=== PATIENT | male | born 1955 | race Caucasian/White ===

== ENCOUNTER 2018-04-02 08:07 | Day surgery (SDC) | payer BC ==
[~2018-04-02 08:07] MED LIST: LACTATED RINGERS 1,000 ML IV SCH; LIDOCAINE 1% 20 ML VIAL (10MG/ML) FOR IV START INTRADERMA PRN
[2018-04-02 08:36] VITALS: TEMP 98
[2018-04-02] MEDS ORDERED: PROPOFOL 10 MG/ML 20 ML VIAL IV ONE (09:23)
[2018-04-02] MEDS ORDERED: LIDOCAINE 1% INJ 10MG/ML (20 ML MDV) ONE (09:23)
--- NOTE | 2018-04-02 09:58 | P.PCN ---
Date of Procedure: 04/02/18 Procedure(s) Performed: Procedure: Total colonoscopy. Preoperative diagnosis: Screening for neoplasia, patient has history of polyps. Postoperative diagnosis: Sigmoid diverticulosis with no evidence of acute diverticulitis, strictures, polyps or cancer. Preparation: HalfLytely prep. Sedation: Was provided by anesthesia. Brief clinical history: The patient is a 62-year-old male who is scheduled for this evaluation for screening for neoplasia. He had two prior exams 5 francine 10 years ago and he had polyps removed on his first exam. At this time, he has no abdominal complaints, bleeding or anemia. Procedure: With the patient on his left lateral decubitus position and after informed consent and adequate sedation, the perianal area was inspected and it did not show any fissures or fistulas. There were no masses felt on digital rectal examination. The Olympus CFQ 160L video colonoscope was then inserted in the rectum and the usual fashion and advanced to the cecum. There were several diverticular orifices seen scattered in the sigmoid but there was no evidence of acute diverticulitis or strictures. No polyps or tumors were seen or any obvious other pathology. I retroflexed the endoscope in the rectum before the endoscope was withdrawn. The patient tolerated the procedure well. Plan: The patient was reassured. Discussed dietary measures. He will follow up with you as planned and I recommended repeat exam in 5 years.
[2018-04-02 10:07] VITALS: BP 122/82; PULSE 63; RESP 18
== END 2018-04-02 10:27 | disposition home or self-care (01) ==
LOC: ORWHC2ENDO 08:07
DX: Z12.11 Encounter for screening for malignant neoplasm of colon (principal); K57.30 Diverticulosis of large intestine without perforation or abscess without bleeding; Z86.010 Personal history of colon polyps; E11.9 Type 2 diabetes mellitus without complications; I10 Essential (primary) hypertension; Z87.442 Personal history of urinary calculi; Z79.899 Other long term (current) drug therapy
CPT/HCPCS: J2001; J2704; G0105

== ENCOUNTER → 2019-03-01 | Outpatient (CLI) | payer BC ==
--- NOTE | 2019-03-01 10:03 | XR ---
EXAMINATION TYPE: XR cervical spine comp DATE OF EXAM: 03/01/2019 COMPARISON: NONE HISTORY: Pain TECHNIQUE: Four views are submitted. FINDINGS: The odontoid is intact. There are no compression deformities. The prevertebral soft tissue structur es are within normal limits. Calcifications in the soft tissues of the left neck are noted. There is an anterolisthesis of C3 on C4 and C4 on C5 measuring approximately 3.2 mm. Severe degenerative disc disease C5-6 with moderate changes C6-C7. Multilevel facet arthropathy. Foraminal encroachment C5-6 and C6-C7. Suspect foraminal encroachment at C4-C5. IMPRESSION: 1. Multilevel degenerative disc disease with multilevel anterolisthesis. Multilevel foraminal encroac hment suspected recommend follow-up MRI.
== END | disposition home or self-care (01) ==
LOC: RADXRYALE 09:08
PROVIDERS: ATTEND Physician Assistant Medical
DX: M50.322 Other cervical disc degeneration at C5-C6 level (principal); M43.12 Spondylolisthesis, cervical region
CPT/HCPCS: 72050

== ENCOUNTER → 2019-09-06 | Outpatient (CLI) | payer BC ==
--- NOTE | 2019-09-06 13:47 | MR ---
EXAMINATION TYPE: MR cervical spine wo con DATE OF EXAM: 09/06/2019 COMPARISON: Plain film 03/01/2019 HISTORY: Cervicalgia, neck pain TECHNIQUE: Multiplanar, multisequence images of the cervical spine were acquired. C2-C3: No evidence for degenerative disc disease. No disc bulge/herniation or protrusion. No Canal stenosis. Foramina are patent bilaterally. C3-C4: Uncovertebral joint hypertrophy and facet arthropathy results in foraminal encroachment on the right. Posterior disc bulge causes only slight anterior mass effect on the thecal sac, no significan t spinal stenosis. C4-C5: Left-sided foraminal encroachment is present due to uncovertebral joint hypertrophy and facet arthropathy. No significant spinal stenosis or sizable disc herniation. C5-C6: Posterior extension of endplate disc complex results in moderate to severe central stenosis. B ilateral foraminal encroachment is present. C6-C7: Posterior extension of broad-based disc bulge causes moderate to severe central stenosis. Unco vertebral joint hypertrophy facet arthropathy results in bilateral foraminal encroachment. C7-T1: No evidence for degenerative disc disease. No disc bulge/herniation or protrusion. No Canal stenosis. Foramina are patent bilaterally. Cervical segments are intact. There is normal alignment. Cervical spinal cord is of normal signal. Craniovertebral junction relationships are within normal limits. There is multilevel spondylosis. L oss of disc height signal is greatest at C5-6 and C6-7, is endplate discogenic marrow signal change. IMPRESSION: Degenerative disc disease, multilevel spinal stenosis and foraminal encroachment.
== END ==
LOC: RADMRIMAIN 08:45
PROVIDERS: ATTEND Physician Assistant Medical
DX: M48.02 Spinal stenosis, cervical region (principal); M50.30 Other cervical disc degeneration, unspecified cervical region
CPT/HCPCS: 72141

== ENCOUNTER → 2020-05-31 | Outpatient (CLI) | payer BC ==
--- NOTE | 2020-06-01 05:21 | CT ---
EXAMINATION TYPE: CT pelvis wo con DATE OF EXAM: 05/31/2020 COMPARISON: 06/22/2013 HISTORY: 64-year-old male Left groin pain. History of bilateral inguinal hernia repairs. TECHNIQUE: Contiguous axial scanning of the pelvis without IV contrast. Coronal and sagittal reconstr uctions performed. CT DLP: 497.9 mGycm Automated exposure control for dose reduction was used. FINDINGS: Within the visualized lower abdomen and pelvis, no dilated small bowel, free fluid, or free air. An indeterminate 1.4 cm cortical lesion from the lateral mid to lower pole right kidney, unchanged yang ggesting cysts. 4 mm nonobstructive right renal calculus. Normal appendix. Moderate stool in the sigmoid colon with mild to moderate diverticular change in the proximal to mid sigmoid. No perisplenic inflammatory change. Mild atherosclerotic calcifications abdominal aorta and iliac arteries. Bladder is urine distended. Prostate gland measures 4.7 cm wide. The previous inguinal hernias are no longer identified. No abnormal fluid collection the pelvis or pe lvic lymphadenopathy. Bones: Osteitis pubis. Moderate degenerative change at the hips. Mild degenerative changes SI joints. IMPRESSION: 1. INTERVAL BILATERAL INGUINAL HERNIA REPAIRS COMPARED TO 2013. NO RECURRENT HERNIA IDENTIFIED. NO ABNORMAL FLUID COLLECTION OR OTHER SPECIFIC ABNORMALITY IDENTIFIED. 2. A 4 MM NONOBSTRUCTIVE RIGHT RENAL CALCULUS. SIGMOID DIVERTICULOSIS. 3. MILD PROSTATOMEGALY AT 4.7 CM WIDE, SLIGHTLY INCREASED FROM 4.4 CM BACK IN 2013.
== END | disposition home or self-care (01) ==
LOC: RADCTMAIN 17:48
PROVIDERS: ATTEND Family Medicine
DX: K40.20 Bilateral inguinal hernia, without obstruction or gangrene, not specified as recurrent (principal); N20.0 Calculus of kidney; K57.30 Diverticulosis of large intestine without perforation or abscess without bleeding; N40.0 Benign prostatic hyperplasia without lower urinary tract symptoms
CPT/HCPCS: 72192; Q9967

== ENCOUNTER → 2022-10-08 | Outpatient (CLI) | payer BC ==
--- NOTE | 2022-10-08 09:46 | XR ---
EXAMINATION TYPE: XR foot complete LT DATE OF EXAM: 10/08/2022 COMPARISON: NONE HISTORY: Pain TECHNIQUE: Three views are submitted. FINDINGS: The osseous structures are intact. There is no acute fracture or dislocation. Small calcaneal spur is noted. There is moderate arthropathy of the first MTP. IMPRESSION: 1. Small calcaneal spurs. 2. Moderate arthropathy first MTP.
== END | disposition home or self-care (01) ==
LOC: RADXRYALE 09:04
PROVIDERS: ATTEND Physician Assistant Medical
DX: M77.32 Calcaneal spur, left foot (principal); M76.62 Achilles tendinitis, left leg

== ENCOUNTER → 2023-10-06 | Outpatient (CLI) | payer BC ==
--- NOTE | 2023-10-06 09:22 | XR ---
EXAMINATION TYPE: XR cervical spine comp DATE OF EXAM: 10/06/2023 CLINICAL HISTORY: pain COMPARISON: NONE TECHNIQUE: Frontal, lateral, oblique, swimmers, and open mouth view of the cervical spine are obtaine d. FINDINGS: The cervical spine is visualized in its entirety from C1 thru the top of T1 level. It is s atisfactory in alignment without evidence of acute fracture or dislocation. The pre-vertebral soft t issue appears within normal limits. Moderate multilevel degenerative disc disease and spondylosis. Th e C1-C2 articulation is unremarkable on the open mouth view. The oblique images are within normal li mits. IMPRESSION: No acute fracture or dislocation is seen in the cervical spine.ICD 10 NO FRACTURE, INITI AL EVALUATION
== END | disposition home or self-care (01) ==
LOC: RADXRYALE 08:59
PROVIDERS: ATTEND Physician Assistant Medical
DX: M50.10 Cervical disc disorder with radiculopathy, unspecified cervical region (principal)
CPT/HCPCS: 72050

== ENCOUNTER 2024-08-06 10:53 | Inpatient (IN) | payer BC ==
[2024-08-06] MEDS: SODIUM CHLORIDE 0.9% 500 ML 500 ML IV ONE (11:55)
[2024-08-06] MEDS: MIDAZOLAM 2 MG/2 ML VIAL IVP ONE ×2 (13:12→13:19)
[2024-08-06] MEDS: LIDOCAINE 1% INJ 10MG/ML (20 ML MDV) SQ ONE (13:13)
[2024-08-06] MEDS: VERAPAMIL SYRINGE (5 MG/10 ML) INTRAARTER ONE (13:16)
[2024-08-06] MEDS: FLUMAZENIL 0.1 MG/ML 5 ML VIAL IVP ONE (13:22)
[2024-08-06] MEDS: HEPARIN SODIUM 1,000 UN/ML (10ML VL) IVP ONE ×2 (13:28→13:44)
[2024-08-06] MEDS: TICAGRELOR 90 MG TAB PO ONE (13:29)
[2024-08-06] MEDS: HEPARIN SODIUM,PORCINE 10,000 UNIT in SODIUM CHLORIDE 0.9% 1,000 ML IRRIGATION ONE (13:39)
[2024-08-06] MEDS: HEPARIN SODIUM,PORCINE (1 ML) 2,500 UNIT in SODIUM CHLORIDE 0.9% 250 ML IRRIGATION ONE (13:40)
[2024-08-06] MEDS: IOPAMIDOL-370 200ML BTL INJ ONE (14:12)
[2024-08-06] MEDS ORDERED: ZOLPIDEM 5 MG TAB PO PRN (14:21)
[2024-08-06] MEDS ORDERED: RX INFO: IV CONTRAST WAS GIVEN 1 EACH MISC MISCELLANE PRN (14:21)
[2024-08-06] MEDS ORDERED: MAG HYDROX/AL HYDROX/SIMETH 30 ML CUP PO PRN (14:21)
[2024-08-06] MEDS ORDERED: NITROGLYCERIN SL TABS 0.4 MG TAB SUBLINGUAL PRN (14:21)
[2024-08-06] MEDS ORDERED: ATROPINE SULFATE 0.1 MG/ML 10ML SYRINGE IV PRN (14:21)
[2024-08-06] MEDS: SODIUM CHLORIDE 0.9% 1,000 ML in EMPTY BAG 1 BAG IV SCH (14:44)
[2024-08-06 16:21] LABS: Glucose,Whole Blood 137 mg/dL (70-110)
[2024-08-06] MEDS: ALPRAZolam 0.25 MG TAB PO PRN (16:48)
--- NOTE | 2024-08-06 17:55 | P.HPIM ---
History of Present Illness H&P Date: 08/06/24 Patient is a 68-year-old male with PMH of JENNIFER (not on CPAP), hypertension initially presented to [facility] on 08/05/2024 with complaint of chest pain. Patient underwent extensive laboratory evaluation including chest x-ray and EKG. His high sensitive troponin level trended upward. Patient was diagnosed with NSTEMI. Patient was transferred to [facility] today. He underwent angioplasty with RCA stenting. Currently, patient is recovering well. Patient not complaining of chest pain, shortness of breath, acute vision changes. Patient received Xanax for anxiety. He otherwise has no other concerns or complaints. Review of systems: Pertinent positives and negatives as discussed in HPI, a complete review of systems was performed and all other systems are negative. Physical examination: Vital signs reviewed General: non toxic, no distress, appears at stated age, normal weight Derm: no unusual rashes/lesions, warm Head: atraumatic, normocephalic, symmetric Eyes: EOMI, no lid lag, anicteric sclera, pupils equal round reactive to light ENT: Nose and ears atraumatic Neck: No cervical lymphadenopathy, trachea midline, supple Mouth: no lip lesion, mucus membranes moist Cardiovascular: S1S2 reg, no murmur, positive dorsalis pedis pulse bilateral, no edema Lungs: CTA bilateral, no rhonchi, no rales, no accessory muscle use Abdominal: soft, nontender to palpation, no guarding Ext: muscle strength 5 out of 5 in all 4 extremities grossly, no gross muscle atrophy, no contractures, Neuro: CN II-XI grossly intact, no gross focal neuro deficits Psych: Alert, oriented, appropriate affect Assessment/Plan: 68-year-old male with past medical history of JENNIFER and hypertension is currently admitted for medical management status post cardiac cath with RCA stent. #NSTEMI status post RCA stent Continue aspirin 81 mg p.o. daily Atorvastatin 80 mg p.o. daily Nitrostat 0.4 mg tablets sublingual Brilinta 90 mg p.o. twice daily Continue with cardiac monitoring Order lipid panel, TSH Heart healthy diet Monitor CBC and BMP #Anxiety #Insomnia Xanax 0.25 mg p.o. twice daily as needed Ambien 5 mg p.o. at bedtime as needed #Hypertension Losartan 100 mg p.o. daily Hydrochlorothiazide 25 mg p.o. daily DVT prophylaxis: not indicated The patient is admitted with an anticipated less than 2 midnight stay for evaluation of NSTEMI status post stent CODE STATUS: Full code Discussed with: Patient Anticipated discharge place: Pending clinical course I saw and evaluated the patient during the ellis and critical portions of this encounter, and discussed the case in detail with the resident author of this note, I agree with the Assessment and Plan, and my changes, if any, are highlighted in blue. Past Medical History Past Medical History: Hypertension, Myocardial Infarction ([place]) Additional Past Medical History / Comment(s): hemorrhoids, hx of kidney stones., Last Myocardial Infarction Date:: 08/06/2024 History of Any Multi-Drug Resistant Organisms: None Reported Past Surgical History: Heart Catheterization With Stent, Hernia Repair Additional Past Surgical History / Comment(s): GILBERT INGUINAL HERNIA. Heart cath sten x1 RCA Radial approach 08/06/2024 Past Anesthesia/Blood Transfusion Reactions: No Reported Reaction Date of Last Stent Placement:: 08/06/2024 Smoking Status: Former smoker - Past Family History Father Family Medical History: Cancer Additional Family Medical History / Comment(s): LARYNX CANCER Mother Family Medical History: Liver Disease Medications and Allergies Home Medications Medication Instructions Recorded Confirmed Type Losartan Potassium 100 mg PO DAILY 08/06/24 08/06/24 History hydroCHLOROthiazide 25 mg PO DAILY 08/06/24 08/06/24 History Allergies Allergy/AdvReac Type Severity Reaction Status Date / Time No Known Allergies Allergy Verified 08/06/24 15:39 Physical Exam Osteopathic Statement: *. No significant issues noted on an osteopathic structural exam other than those noted in the History and Physical/Consult. Vitals: Vital Signs Temp Pulse Resp BP BP Pulse Ox 08/06/24 17:12 130/76 08/06/24 15:57 60 16 124/74 97 08/06/24 15:36 64 16 141/77 98 08/06/24 15:06 67 16 140/84 98 08/06/24 14:51 64 16 143/87 98 08/06/24 14:47 63 16 148/84 98 08/06/24 14:30 97.4 F L 60 16 150/85 97 08/06/24 12:00 97.6 F 60 14 131/76 161/83 92 L Intake and Output 08/06/24 08/06/2408/06/24 06:59 14:59 22:59 Intake Total 425 Balance 425 Intake: IV 100 Intake, IV Titration 325 Amount Sodium Chloride 0.9% 1, 325 000 ml In Empty Bag 1 bag @ 75 mls/hr IV .[id number] [facility] Rx#:[id number] Other: Voiding Method Toilet Urinal Weight 94 kg 94 kg Results Labs: Abnormal Lab Results - Last 24 Hours (Table) 08/06/24 Range/Units 16:20 POC Glucose (mg/dL) 137 H (70-110) mg/dL Thrombosis Risk Factor Assmnt - Choose All That Apply Any of the Below Risk Factors Present?: Yes Other Risk Factors: Yes Each Risk Factor Represents 2 Points: Age 61-74 years Other congenital or acquired thrombophilia - If yes, enter type in comment: No Thrombosis Risk Factor Assessment Total Risk Factor Score: 2 Thrombosis Risk Factor Assessment Level: Low Risk
[2024-08-06] MEDS: ACETAMINOPHEN TAB 325 MG TAB PO PRN (18:04)
[2024-08-06 18:39] LABS: Acetaminophen <10.0 ug/mL
--- NOTE | 2024-08-06 19:00 | P.PCN ---
Date of Procedure: 08/06/24 Operative Findings: Cardiac catheterization and percutaneous coronary intervention Performing physician Baljinder Hutchinson MD Procedure performed 1. Selective right and left coronary angiogram 2. Successful stenting of the proximal RCA using 4.0 x 23 mm Xience JORDIN which was postdilated using 5 mm NC balloon with an excellent angiographic results and JORDAN-3 flow with adjunctive use of IVUS 3. Ultrasound-guided access of the right radial artery Indication 68-year-old gentleman was admitted to the hospital with chest discomfort and ruled out for acute coronary event. He underwent a stress test and that came to be significantly abnormal. In the light of that a heart catheterization was advised. Approach Right radial artery Complication None Level of sedation Moderate with sedation next of 63 minutes Procedure description After obtaining informed consent the patient was brought to the cardiac catheter. The right radial artery was cannulated using a collection technique under ultrasound guidance the micropuncture wire passed easily then I placed a 6 Pashto 11 cm sheath at the right radial artery. Subsequently anticoagulation was initiated using heparin with continuous ACT monitoring. Also the patient was given 2 mg of verapamil intra-arterially. Selective right and left coronary angiogram performed using JR4 and JL 3.5 catheters. Subsequently we decided to intervene on the RCA Anticoagulation continue with using heparin. At that point I did engage the RCA using JR4 guiding catheter. I did wire of the RCA from the get go using a whisper wire and run-through wire knowing how tortuous and calcified the RCA. Subsequently intravascular ultrasound was performed and showed a diameter between 4.5 mm to 5 mm. After that I did attempt to doing balloon angioplasty using 2.5 mm NC balloon balloon would not cross the lesion. I was able to do balloon angioplasty using 2 mm NC noncompliant balloon and after that I was able to advance 2.5 mm noncompliant balloon and I did balloon angioplasty using the balloon and subsequently 3.5 NC balloon before I deployed 4.0 x 23 mm stent was stent was positioned under fluoroscopy guidance and deployed under fluoroscopy guidance and postdilated using initially 4.5 mm NC balloon and subsequently 5 mm NC balloon. Final angiogram showed excellent angiographic results with JORDAN-3 flow. The procedure was completed with no complication Selective coronary angiogram The RCA is a large-caliber vessel and the dominant vessel with critical disease involving a calcified lesion involving the proximal to midportion. The mid and distal RCA appears to be angiographically normal The left main has mild disease only The LCx medium caliber vessel nondominant vessel with intermediate disease only. No high-grade stenosis was identified The LAD medium caliber vessel with mild to moderate disease with no high-grade stenosis was identified. Postprocedure management Dual antiplatelet therapy for at least 6 months Aggressive cholesterol control Risk factors modification Follow-up with the patient
[2024-08-06 20:15] LABS: Glucose,Whole Blood 101 mg/dL (70-110)
[2024-08-07 01:56] LABS: Chol/HDL Ratio 3.89 Ratio; LDL Cholesterol,Calculated 71.3 mg/dL (0.0-131.0)
[2024-08-07 07:13] LABS: Basophils % (A) 1 %; Eosinophils # (A) 0.3 k/uL (0-0.7); Eosinophils % (A) 4 %; HCT 43.8 % (39.0-53.0); HGB 13.9 gm/dL (13.0-17.5); Lymphocytes # (A) 1.4 k/uL (1.0-4.8); Lymphocytes % (A) 18 %; MCH 28.6 pg (25.0-35.0); MCHC 31.9 g/dL (31.0-37.0); MCV 89.6 fL (80.0-100.0); Monocytes # (A) 0.6 k/uL (0-1.0); Monocytes % (A) 8 %; Neutrophils % (A) 66 %; Platelet Count 284 k/uL (150-450); RBC 4.88 m/uL (4.30-5.90); RDW 13.5 % (11.5-15.5); WBC 7.6 k/uL (3.8-10.6)
[2024-08-07 07:24] LABS: African American GFR (CKD) >90 (>60 ml/min/1.73 sqM); Anion Gap 9 mmol/L; Blood Urea Nitrogen 16 mg/dL (9-20); Calcium 9.4 mg/dL (8.4-10.2); Carbon Dioxide 21 mmol/L (22-30); Chloride 108 mmol/L (98-107); Glucose 107 mg/dL (74-99); Non-African American GFR(CKD) 89 (>60 ml/min/1.73 sqM); Potassium 4.6 mmol/L (3.5-5.1); Sodium 138 mmol/L (137-145)
--- NOTE | 2024-08-07 09:04 | P.PN ---
Progress Note - Text Doing well. He underwent coronary stenting to the proximal RCA Blood pressure is normal heart rates are normal asymptomatic no murmurs He can go home today. No events on telemetry impression Acute myocardial infarction/ACS Status post stenting to the RCA May go home today Discharge medications include aspirin, Brilinta, atorvastatin 80 mg p.o. daily. Zetia 10 mg has been added on account of hypertriglyceridemia Continue losartan and hydrochlorothiazide as before Metoprolol to continue Follow-up with Dr. Whaley
[2024-08-07] MEDS: LOSARTAN 50 MG TAB PO SCH (09:44)
[2024-08-07] MEDS: hydroCHLOROthiazide 25 MG TAB PO SCH (09:45)
[2024-08-07] MEDS: ATORVASTATIN 80 MG TAB PO SCH (09:45)
[2024-08-07] MEDS: TICAGRELOR 90 MG TAB PO SCH (09:45)
[2024-08-07] MEDS: ASPIRIN 81 MG PO SCH (09:45)
[2024-08-07 11:17] VITALS: BP 156/93; PULSE 70; RESP 14; TEMP 97.7
[2024-08-07 11:38] VITALS: BMI 30.6
--- NOTE | 2024-08-07 11:41 | P.DS ---
Providers Date of admission: 08/06/24 11:26 Attending physician: Torsten Roach MD Discharge diagnosis: #NSTEMI status post RCA stent #Anxiety #Insomnia #Hypertension Hospital course: Patient is a 68-year-old male with PMH of JENNIFER (not on CPAP), hypertension initially presented to [facility] on 08/05/2024 with complaint of chest pain. Patient underwent extensive laboratory evaluation including chest x-ray and EKG. His high sensitive troponin level trended upward. Patient was diagnosed with NSTEMI. Patient was transferred to [facility] today. He underwent angioplasty with RCA stenting. Currently, patient is recovering well. Patient not complaining of chest pain, shortness of breath, acute vision changes. Patient received Xanax for anxiety. He otherwise has no other concerns or complaints. Patient is discharged on aspirin , Brilinta, atorvastatin 80 mg p.o. daily and Zetia 10 mg. Patient is advised to continue on home medications. Patient is provided instruction on heart attack and heart healthy diet. Advised to follow up on PCP and cable coverer. Physical examination: Vital signs reviewed General: non toxic, no distress, appears at stated age, normal weight Derm: no unusual rashes/lesions, warm Head: atraumatic, normocephalic, symmetric Eyes: EOMI, no lid lag, anicteric sclera, pupils equal round reactive to light ENT: Nose and ears atraumatic Neck: No cervical lymphadenopathy, trachea midline, supple Mouth: no lip lesion, mucus membranes moist Cardiovascular: S1S2 reg, no murmur, positive dorsalis pedis pulse bilateral, no edema Lungs: CTA bilateral, no rhonchi, no rales, no accessory muscle use Abdominal: soft, nontender to palpation, no guarding Ext: muscle strength 5 out of 5 in all 4 extremities grossly, no gross muscle atrophy, no contractures, Neuro: CN II-XI grossly intact, no gross focal neuro deficits Psych: Alert, oriented, appropriate affect I saw and evaluated the patient during the ellis and critical portions of this encounter, and discussed the case in detail with the resident author of this note, I agree with the Assessment and Plan, and my changes, if any, are highlighted in blue. Consults: 08/06/24 14:21 Consult Physician Routine Consulting Provider: [facility] Consult Reason/Comments: Post Interventional Patient Do you want consulting provider notified?: Already Contacted Primary care physician: Suzanne Nayak Plan - Discharge Summary Discharge Rx Participant: Yes New Discharge Prescriptions: New Aspirin 81 mg PO DAILY #30 tab Ticagrelor [Brilinta] 90 mg PO BID #60 tab Ezetimibe [Zetia] 10 mg PO DAILY #90 tab Atorvastatin [Lipitor] 80 mg PO DAILY #30 tab Continue Losartan Potassium 100 mg PO DAILY hydroCHLOROthiazide 25 mg PO DAILY Discharge Medication List Losartan Potassium 100 mg PO DAILY 08/06/24 [History] hydroCHLOROthiazide 25 mg PO DAILY 08/06/24 [History] Aspirin 81 mg PO DAILY #30 tab 08/07/24 [Rx] Atorvastatin [Lipitor] 80 mg PO DAILY #30 tab 08/07/24 [Rx] Ezetimibe [Zetia] 10 mg PO DAILY #90 tab 08/07/24 [Rx] Ticagrelor [Brilinta] 90 mg PO BID #60 tab 08/07/24 [Rx] Follow up Appointment(s)/Referral(s): Mirela Whaley MD [STAFF PHYSICIAN] - 1 Week (Patient to schedule appointment, please ensure the office is aware this appointment is a follow up after a heart catheterization.) Cesia Marie MD [REFERRING] - 1 Week (Patient to schedule appointment, as office is closed at time of discharge.) Patient Instructions/Handouts: *Surgery [facility] - After Heart Catheterization - Electronic Gaming Device Supervisor Instructions, Heart Attack (DC), Heart Healthy Diet (DC) Activity/Diet/Wound Care/Special Instructions: Please follow up with your pcp and cable coverer rasheed. Take it easy for the first couple of days after the procedure. You can expect to feel tired and weak. Discharge Disposition: HOME SELF-CARE
--- NOTE | 2024-08-07 13:59 | P.PN ---
Subjective Progress Note Date: 08/07/24 This is London Sanchez NP, I'm dictating on behalf of Dr. Wallis's H&P and A&P. Patient was interviewed and examined. Doing well. He underwent coronary stenting to the proximal RCA Blood pressure is normal heart rates are normal asymptomatic no murmurs He can go home today. No events on telemetry GENERAL: Well-appearing, well-nourished and in no acute distress. NECK: Supple without JVD or thyromegaly. LUNGS: Breath sounds clear to auscultation bilaterally. Respiration equal and unlabored. No wheezes, rales or rhonchi. HEART: Regular rate and rhythm without murmurs, rubs or gallops. S1 and S2 heard. EXTREMITIES: Normal range of motion, no edema. No clubbing or cyanosis. Peripheral pulses intact and strong. VITALS: Temp 97.7, pulse 70, respirations 14, blood pressure 156/93, O2 saturation 96% on room air TELEMETRY: Sinus mechanism LABS: White count 7.6, hemoglobin 13.9, platelets 284, sodium 138, potassium 4.6, BUN 16, creatinine 0.89, calcium 9.4, triglycerides 297, cholesterol 176, LDL 71.3, HDL 45.3 IMPRESSION: 1. Acute myocardial infarction/ACS 2. Status post stenting to the RCA PLAN: May go home today. Discharge medications include aspirin, Brilinta, atorvastatin 80 mg p.o. daily. Zetia 10 mg has been added on account of hypertriglyceridemia. Continue losartan and hydrochlorothiazide as before. Metoprolol to continue. Follow-up with Dr. Whaley. Objective - Vital Signs Vital signs: Vital Signs Temp 97.7 F 08/07/24 09:40 Pulse 70 08/07/24 09:40 Resp 14 08/07/24 09:40 BP 156/93 08/07/24 09:40 Pulse Ox 96 08/07/24 09:40 FiO2 Intake & Output 08/06/24 08/07/24 08/07/24 18:59 06:59 18:59 Intake Total 543 118 Balance 543 118 Weight 94 kg 94.1 kg 94.1 kg Intake: IV 100 Intake, IV Titration 325 Amount Sodium Chloride 0.9% 1, 325 000 ml In Empty Bag 1 bag @ 75 mls/hr IV .[id number] COUNT INCLUDES THE [facility] Rx#:[id number] Oral 118 118 Other: Voiding Method Toilet Toilet Toilet Urinal Urinal Urinal # Voids 1 - Labs CBC & Chem 7: 08/07/24 06:03 08/07/24 06:03 Labs: Abnormal Lab Results - Last 24 Hours (Table) 08/06/24 08/06/24 08/07/24 Range/Units 16:20 17:59 06:03 Chloride 108 H (98-107) mmol/L Carbon Dioxide 21 L (22-30) mmol/L Glucose 107 H (74-99) mg/dL POC Glucose (mg/dL) 137 H (70-110) mg/dL Triglycerides 297.00 H (0.00-149.00) mg/dL VLDL Cholesterol, Calc 59.40 H (5.00-40.00) mg/dL
== END 2024-08-07 12:45 | disposition home or self-care (01) | DRG 322 ==
LOC: 3SCARD 11:26
PROVIDERS: ADMIT Internal Medicine; ATTEND Internal Medicine
PROC: 4A023N7 Measurement of Cardiac Sampling and Pressure, Left Heart, Percutaneous Approach (ICD-10-PCS; 2024-08-06)
PROC: 027034Z Dilation of Coronary Artery, One Artery with Drug-eluting Intraluminal Device, Percutaneous Approach (ICD-10-PCS; principal; 2024-08-06 11:45)
PROC: B240ZZ3 Ultrasonography of Single Coronary Artery, Intravascular (ICD-10-PCS; 2024-08-06 11:45)
PROC: B2111ZZ Fluoroscopy of Multiple Coronary Arteries using Low Osmolar Contrast (ICD-10-PCS; 2024-08-06 11:45)
DX: I21.4 Non-ST elevation (NSTEMI) myocardial infarction (principal); I10 Essential (primary) hypertension; E78.1 Pure hyperglyceridemia; F41.9 Anxiety disorder, unspecified; G47.00 Insomnia, unspecified; G47.33 Obstructive sleep apnea (adult) (pediatric); I25.2 Old myocardial infarction; Z87.891 Personal history of nicotine dependence; Z79.899 Other long term (current) drug therapy
CPT/HCPCS: 80048; 80061; 80143; 84443; 85025; 92978; 93454

== ENCOUNTER → 2024-08-27 | Outpatient (CLI) | payer BC ==
--- NOTE | 2024-08-27 09:35 | US ---
EXAMINATION TYPE: US Aorta Screening DATE OF EXAM: 08/27/2024 COMPARISON: NONE CLINICAL INDICATION: Male, 68 years old with history of I25.10 ATHSCL HEART DISEASE; recent heart cat h with stents 3 weeks ago TECHNIQUE: Multiple sonographic images of the abdominal aorta are obtained with grayscale and color D oppler imaging. with grayscale and color Doppler imaging FINDINGS: EXAM MEASUREMENTS: Abdominal Aorta: Proximal: gassed out Mid: 2.5 x 2.2cm Distal: 1.7 x 2.2cm Bifurcation: Right Iliac: 1.1 x 1.4cm Left Iliac: 1.[address] DESIGN ENGINEER NOTES: Calcifications seen with no aneurysm IMPRESSION: No evidence for aortic aneurysm. [facility], , 08/27/2024 9:32 AM
== END | disposition home or self-care (01) ==
LOC: RADUSWWP 07:05
PROVIDERS: ATTEND Internal Medicine Interventional Cardiology
DX: I25.10 Atherosclerotic heart disease of native coronary artery without angina pectoris (principal)
CPT/HCPCS: 76706

== ENCOUNTER → 2024-10-07 | Outpatient (CLI) | payer BC ==
[2024-10-07 16:01] LABS: ALT 58 U/L (10-49); AST 34 U/L (14-35); Chol/HDL Ratio 1.92 Ratio; Creatine Kinase 79 U/L (35-257); LDL Cholesterol,Calculated 23.6 mg/dL (0.0-131.0); VLDL Calculation 14.66 mg/dL (5.00-40.00)
== END | disposition home or self-care (01) ==
LOC: LABWHC1 08:06
PROVIDERS: ATTEND Internal Medicine Interventional Cardiology
DX: I25.10 Atherosclerotic heart disease of native coronary artery without angina pectoris (principal); E78.5 Hyperlipidemia, unspecified
CPT/HCPCS: 36415; 80061; 82550; 84450; 84460

== ENCOUNTER 2024-10-19 12:38 | Emergency (ER) | payer BC, MEDICARE ==
[2024-10-19 12:43] VITALS: RESP 18
[2024-10-19] MEDS: OXYMETAZOLINE 0.05% NASL SPRAY 1 SPRAY BOTTLE NASAL STA (13:14)
--- NOTE | 2024-10-19 13:21 | ED ---
ENT HPI - General Chief complaint: ENT Stated complaint: nose bleed, thinners Time Seen by Provider: 10/19/24 13:20 Source: patient, RN notes reviewed Mode of arrival: ambulatory Limitations: no limitations - History of Present Illness Initial comments: 69-year-old male presented to the ER for evaluation of epistaxis. Patient reports this morning he woke up blew his nose and cleared his throat then started to experience right nare bleeding. He does report drainage down the back of his throat. He denies any injuries or traumas to nose. Patient has no history of epistaxis. He is on Brilinta as he recently underwent cardiac catheterization with stent placement in July of 2024. He denies any difficulty breathing, wheezing, chest pain or other complaints. - Related Data Home Medications Medication Instructions Recorded Confirmed Losartan Potassium 100 mg PO DAILY 08/06/24 08/06/24 hydroCHLOROthiazide 25 mg PO DAILY 08/06/24 08/06/24 Previous Rx's Medication Instructions Recorded Aspirin 81 mg PO DAILY #30 tab 08/07/24 Atorvastatin [Lipitor] 80 mg PO DAILY #30 tab 08/07/24 Ezetimibe [Zetia] 10 mg PO DAILY #90 tab 08/07/24 Ticagrelor [Brilinta] 90 mg PO BID #60 tab 08/07/24 Allergies Allergy/AdvReac Type Severity Reaction Status Date / Time No Known Allergies Allergy Verified 08/06/24 15:39 Review of Systems ROS Statement: Those systems with pertinent positive or pertinent negative responses have been documented in the HPI. ROS Other: All systems not noted in ROS Statement are negative. Past Medical History Past Medical History: Hypertension, Myocardial Infarction (CO) Additional Past Medical History / Comment(s): hemorrhoids, hx of kidney stones., Last Myocardial Infarction Date:: 08/06/2024 History of Any Multi-Drug Resistant Organisms: None Reported Past Surgical History: Heart Catheterization With Stent, Hernia Repair Additional Past Surgical History / Comment(s): GILBERT INGUINAL HERNIA. Heart cath sten x1 RCA Radial approach 08/06/2024 Past Anesthesia/Blood Transfusion Reactions: No Reported Reaction Date of Last Stent Placement:: 08/06/2024 Past Psychological History: No Psychological Hx Reported Smoking Status: Former smoker Past Alcohol Use History: None Reported, Occasional Past Drug Use History: None Reported - Past Family History Father Family Medical History: Cancer Additional Family Medical History / Comment(s): LARYNX CANCER Mother Family Medical History: Liver Disease General Exam Limitations: no limitations General appearance: alert, in no apparent distress ENT exam: Present: mucous membranes moist, other (No nasal bone tenderness. No septal edema. Minimal active bleeding. There is minimal blood to oropharynx.) Respiratory exam: Present: normal lung sounds bilaterally. Absent: respiratory distress, wheezes, rales, rhonchi, stridor Cardiovascular Exam: Present: regular rate, normal rhythm, normal heart sounds. Absent: systolic murmur, diastolic murmur, rubs, gallop, clicks Neurological exam: Present: alert, oriented X3, CN II-XII intact Skin exam: Present: warm, dry, intact, normal color. Absent: rash Course Vital Signs 10/19/24 10/19/24 12:41 14:47 Temperature 98.2 F 98 F Pulse Rate 63 64 Respiratory 18 18 Rate Blood Pressure 138/90 O2 Sat by Pulse 97 99 Oximetry - Reevaluation(s) Reevaluation #1: 10/19/24 13:21 Afrin administered and nose clamp placed. No signs of acute distress. 10/19/24 14:05 Patient reevaluated. Nose clamp removed. No active bleeding. Patient will be monitored for any bleeding no signs of acute distress. Medical Decision Making - Medical Decision Making Was pt. sent in by a medical professional or institution (, PA, CABLE INSTALLER REPAIRER, urgent care, hospital, or jail...) When possible be specific @ -No Did you speak to anyone other than the patient for history (EMS, parent, family, police, friend...)? What history was obtained from this source @ -No Did you review nursing and triage notes (agree or disagree)? Why? @ -I reviewed and agree with nursing and triage notes Were old charts reviewed (outside hosp., previous admission, EMS record, old EKG, old radiological studies, urgent care reports/EKG's, jail records)? Report findings @ -No old charts were reviewed Differential Diagnosis (chest pain, altered mental status, abdominal pain women, abdominal pain men, vaginal bleeding, weakness, fever, dyspnea, syncope, headache, dizziness, GI bleed, back pain, seizure, CVA, palpatations, mental health, musculoskeletal)? @ -Nasal bone fracture, epistaxis, foreign body, coagulopathy... This list is not meant to be all-inclusive EKG interpreted by me (3pts min.). @ -None done X-rays interpreted by me (1pt min.). @ -None done CT interpreted by me (1pt min.). @ -None done U/S interpreted by me (1pt. min.). @ -None done What testing was considered but not performed or refused? (CT, X-rays, U/S, labs)? Why? @ -None What meds were considered but not given or refused? Why? @ -None Did you discuss the management of the patient with other professionals (professionals i.e. Dr., PA, CABLE INSTALLER REPAIRER, lab, RT, psych nurse, high school social studies tutor, mangle feeder, teacher, aviation ordnance officer, caser shoe parts)? Give summary @ -No Was smoking cessation discussed for >3mins.? @ -No Was critical care preformed (if so, how long)? @ -No Were there social determinants of health that impacted care today? How? (Homelessness, low income, unemployed, alcoholism, drug addiction, transportation, low edu. Level, literacy, decrease access to med. care, fdc, rehab)? @ -No Was there de-escalation of care discussed even if they declined (Discuss DNR or withdrawal of care, Hospice)? DNR status @ -No What co-morbidities impacted this encounter? (DM, HTN, Smoking, COPD, CAD, Cancer, CVA, ARF, Chemo, Hep., AIDS, mental health diagnosis, sleep apnea, morbid obesity)? @ -None Was patient admitted / discharged? Hospital course, mention meds given and route, prescriptions, significant lab abnormalities, going to OR and other pertinent info. @ -Discharge. 69-year-old male presenting to the ER for evaluation of epistaxis. Patient recently started on Brilinta as he underwent cardiac catheterization with stent placement. History and physical exam completed. Vitals stable. Patient no signs of acute distress nontoxic-appearing. Patient does have tissue packing in nose on examination. Exam remarkable for bleeding out of right nare and minimal blood to oropharynx. There is no evidence of septal hematoma. Afrin administered and nose clamp placed for approximately 30 minutes. Upon reevaluation, nose clamp removed with no reoccurrence of bleeding. Patient was monitored in the ER for approximately 20 to 30 minutes after cessation of bleeding with no reoccurrence. Patient is stable for discharge at this time. Patient discharged home with nose clamp and given instructions if bleeding were to begin again. Strict return parameters discussed. Patient discharged in stable condition with follow-up to PCP. Patient verbally expressed understanding and agreement with care plan. Case discussed with ED attending, Dr. Barber. Undiagnosed new problem with uncertain prognosis? @ -No Drug Therapy requiring intensive monitoring for toxicity (Heparin, Nitro, Insulin, Cardizem)? @ -No Were any procedures done? @ -No Diagnosis/symptom? @ -Epistaxis Acute, or Chronic, or Acute on Chronic? @ -Acute Uncomplicated (without systemic symptoms) or Complicated (systemic symptoms)? @ -Uncomplicated Side effects of treatment? @ -No Exacerbation, Progression, or Severe Exacerbation? @ -No Poses a threat to life or bodily function? How? (Chest pain, [place], CO, pneumonia, PE, COPD, DKA, ARF, appy, cholecystitis, CVA, Diverticulitis, Homicidal, Suicidal, threat to staff... and all critical care pts) @ -No Disposition Clinical Impression: Epistaxis Disposition: HOME SELF-CARE Condition: Stable Instructions (If sedation given, give patient instructions): Nosebleed (ED) Additional Instructions: Follow-up with PCP. I recommend using a humidifier. Do not blow nose for 24 hours. Return to the ER for any new or worsening concerns. Is patient prescribed a controlled substance at d/c from ED?: No Referrals: Vinny Tellez DO [Primary Care Provider] - 1-2 days Time of Disposition: 14:34
[2024-10-19 14:48] VITALS: BP 138/90; PULSE 64; TEMP 98
== END 2024-10-19 14:49 | disposition home or self-care (01) ==
LOC: EC 12:38
DX: R04.0 Epistaxis (principal); Z87.891 Personal history of nicotine dependence; Z95.5 Presence of coronary angioplasty implant and graft
CPT/HCPCS: 99282

== ENCOUNTER → 2025-03-10 | Outpatient (CLI) | payer BC ==
--- NOTE | 2025-03-10 10:59 | CTL ---
EXAMINATION TYPE: CT Low Dose Lung DATE OF EXAM: 03/10/2025 10:00 AM COMPARISON: None. SCREENING VISIT: Initial CT DIAGNOSTIC QUALITY: Satisfactory CLINICAL INDICATION: Male, 69 years old with history of Z12.2 SCREENING LUNG CA Z87.891 FORMER SMOKER , FORMER SMOKER, QUIT 15 YEARS AGO. SMOKED 1PPD X 30 YEARS., Lung cancer screening, History of tobacc o use. TECHNIQUE: Low dose computed tomography scan was performed through the chest at 1 mm thick sections a nd reconstructed images in the coronal plane at 1 mm thick sections. Contrast used: mL of , (none if empty) Oral contrast used: (none if empty) CT DLP: 134.1 mGycm, Automated exposure control for dose reduction was used. CT CTDI: 3.5 mGy, Automated exposure control for dose reduction was used. FINDINGS: LUNG NODULES: None. LUNGS: COPD: Severity: Mild, peribronchial thickening with mild bronchiectasis. Fibrosis: Severity: None Lymph nodes: None Other findings: None RIGHT PLEURAL SPACE: Effusion: None Calcification: None Thickening: None Pneumothorax: None LEFT PLEURAL SPACE: Effusion: None Calcification: None Thickening: None Pneumothorax: None HEART: Other: Ascending thoracic aorta at the level the main pulmonary artery measures 3.5 cm. The main pul monary artery at the bifurcation measures 2.3 cm. Heart Size: Normal Coronary calcification: Moderate coronary artery calcifications present. Pericardial effusion: None OTHER FINDINGS: Upper abdomen: Normal Bony thorax: Normal Supraclavicular region: Normal IMPRESSION: No suspicious changes to suggest primary or metastatic neoplasm FOLLOW UP CT CHEST RECOMMENDATION: Follow-up low-dose CT chest one year CT LUNG RAD: Lung-Rad 1 Negative [facility], , 03/10/2025 10:56 AM
== END | disposition home or self-care (01) ==
LOC: RADCTMAIN 09:24
PROVIDERS: ATTEND Internal Medicine
DX: Z12.2 Encounter for screening for malignant neoplasm of respiratory organs (principal); Z87.891 Personal history of nicotine dependence
CPT/HCPCS: 71271